=== PATIENT | female | born 1990 | race Caucasian/White ===

== ENCOUNTER 2018-01-24 12:42 | Emergency (ER) | payer OTHER ==
[~2018-01-24 12:42] MED LIST: AMOX250C PO; NAPR550 PO; OLOP.1%O EACH EYE; TOBRA.3%O EACH EYE; Z.0.NO CURRENT MEDS
== END 2018-01-24 13:00 | disposition left against medical advice (07) ==
LOC: NED 12:42
DX: Z04.1 Encounter for examination and observation following transport accident (principal); Z53.21 Procedure and treatment not carried out due to patient leaving prior to being seen by health care provider
CPT/HCPCS: 99281